=== PATIENT | female | born 1965 | race Hispanic/Latino ===

== ENCOUNTER → 2022-12-28 | Outpatient (CLI) | payer OTHER | END | disposition home or self-care (01) | LOC: RAH 11:02 | PROVIDERS: ATTEND Physical Medicine & Rehabilitation | DX: M19.011 Primary osteoarthritis, right shoulder (principal); M75.32 Calcific tendinitis of left shoulder; M25.719 Osteophyte, unspecified shoulder; M25.811 Other specified joint disorders, right shoulder | CPT/HCPCS: 73030 ==